=== PATIENT | male | born 1990 ===

== ENCOUNTER 2018-04-27 22:01 | Emergency (ER) | payer OTHER ==
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
[2018-04-27] MEDS ORDERED: ceFAZolin(*) 2GM/D5W 50ML 50 ML IVPB ONE (23:30)
[2018-04-28 00:30] VITALS: BP 127/90
[2018-04-28] MEDS ORDERED: fentaNYL CITR 100 MCG/2 ML AMP IVP ONE (00:30)
== END 2018-04-28 01:02 | disposition short-term general hospital (02) ==
LOC: ER 22:49
DX: S02.609B Fracture of mandible, unspecified, initial encounter for open fracture (principal); S01.81XA Laceration without foreign body of other part of head, initial encounter; S02.5XXA Fracture of tooth (traumatic), initial encounter for closed fracture; V19.9XXA Pedal cyclist (driver) (passenger) injured in unspecified traffic accident, initial encounter
CPT/HCPCS: 12051; 70486; 96365; 96374; 99284; J3010; J0690

== ENCOUNTER → 2018-04-28 | Outpatient (CLI) | payer OTHER | LOC: AMB 00:50 | PROVIDERS: ATTEND Nurse Practitioner | DX: S02.609A Fracture of mandible, unspecified, initial encounter for closed fracture (principal); V18.0XXA Pedal cycle driver injured in noncollision transport accident in nontraffic accident, initial encounter; Y92.488 Other paved roadways as the place of occurrence of the external cause | CPT/HCPCS: A0425; A0426 ==